=== PATIENT | female | born 1985 | race Caucasian/White ===

== ENCOUNTER 2018-05-11 07:24 | Day surgery (SDC) | payer BC ==
[~2018-05-11] VITALS: Ht 162.6 cm; Wt 55.8 kg
[2018-05-11] VITALS (10 sets, daily range): BP systolic 90–111; BP diastolic 40–80
--- NOTE | 2018-05-11 07:05 | Pre-Procedure Note/Attestation ---
Pre-Procedure Note/Attestation Complete Prior to Procedure Planned Procedure: left Procedure Narrative: knee acl reconstruction, possible menisectomy Indications for Procedure Pre-Operative Diagnosis: left knee acl tear/laxity Attestation I attest that I discussed the nature of the procedure; its benefits; risks and complications; and alternatives (and the risks and benefits of such alternatives ), prior to the procedure, with the patient (or the patient's legal phone representative). I attest that, if there was a reasonable possibility of needing a blood transfusion, the patient (or the patient's legal phone representative) was given the [facility] standardized written summary, pursuant to the Mehdi Felice Blood Safety Act ([place] [facility] and Safety Code # 1645, as amended). I attest that I re-evaluated the patient just prior to the surgery and that there has been no change in the patient's H&P, except as documented below: Roberto Kat MD May 11, 2018 07:05
--- NOTE | 2018-05-11 07:06 | Operative Note - PDOC ---
Operative Note Operative Note Pre-op Diagnosis: left knee acl tear/laxity Procedure: see op report Post-op Diagnosis: same as pre-op plus Operative Findings: consistent w/pre-op dx studies Anesthesia: MAC Specimen: none Complications: none Condition: stable Estimated Blood Loss: none Implant(s) used?: Yes Roberto Kat MD May 11, 2018 07:06
[~2018-05-11 07:24] MED LIST: D5 1/2NS 1,000 ML IV SCH; HYDROmorphone 1mg/ml Carpuject SUBQ PRN; Norco 5mg/325mg tab ORAL PRN; Tylenol #3 tab (300mg/30mg) ORAL PRN; ceFAZolin 1gm in D5W 55ml IVPB ONE; celeBREX 200mg Cap **SURGERY PATIENTS ONLY ORAL ONE; oxyCONTIN 20mg tab ORAL ONE
[2018-05-11] MEDS ORDERED: SPIRONOLACTONE100 MG ORAL (08:11)
[2018-05-11] MEDS ORDERED: celeBREX 200mg Cap **SURGERY PATIENTS ONLY ORAL ONE (08:35)
[2018-05-11] MEDS ORDERED: oxyCONTIN 20mg tab ORAL ONE (08:35)
[2018-05-11] MEDS ORDERED: Lidocaine 1% MPF 10mg/ml 5ml ONE (09:26)
[2018-05-11] MEDS ORDERED: fentaNYL 100 mcg/2 mL IV ONE (09:26)
[2018-05-11] MEDS ORDERED: Midazolam 2mg/2ml Inj ONE (09:26)
[2018-05-11] MEDS ORDERED: Propofol 200mg/20ml IV ONE (09:26)
[2018-05-11] MEDS ORDERED: Ropivacaine 5mg/ml Vial 30ml INJ ONE ×2 (09:30→11:35)
[2018-05-11] MEDS ORDERED: EPINEPHrine 1mg/1ml Amp ONE ×2 (09:30→10:32)
[2018-05-11] MEDS ORDERED: Ketorolac 30mg Inj ONE ×2 (10:32→11:36)
[2018-05-11] MEDS ORDERED: Kenalog-40 1ml Vial ONE (10:32)
[2018-05-11] MEDS ORDERED: Bupivacaine 0.25% Inj 30ml INJ ONE ×2 (10:32→10:33)
[2018-05-11] MEDS ORDERED: Morphine Sulfate PF 0 ML ONE (10:32)
[2018-05-11] MEDS ORDERED: Lidocaine 1% 10mg/ml/Epi 0.005mg/ml 30ml vial INJ ONE (10:33)
[2018-05-11] MEDS ORDERED: LR 1000ml ONE (11:00)
[2018-05-11] MEDS ORDERED: NS Irrig 4000ml IRRIG ONE (11:00)
--- NOTE | 2018-05-11 11:28 | Anethesia Preoperative Eval ---
Anesthesia Pre-op PMH/ROS General Date of Evaluation: May 11, 2018 Anesthesiologist: Fran ASA Score: ASA 2 Mallampati Score Class I : Soft palate, uvula, fauces, pillars visible Class II: Soft palate, uvula, fauces visible Class III: Soft palate, base of uvula visible Class IV: Only hard plate visible Mallampati Classification: Class II Surgeon: North Diagnosis: Left knee ACL tear Surgical Procedure: Left knee arthroscopy with ACL repair Anesthesia History: none Family History: no anesthesia problems Allergies: Coded Allergies: No Known Allergies (Unverified , 05/10/18) Medications: see eMAR Past Medical History Cardiovascular: Denies: HTN, CAD, [place], valve dz, arrhythmia, other Pulmonary: Denies: asthma, COPD, LUAN, other Gastrointestinal/Genitourinary: Denies: GERD, CRI, ESRD, other Neurologic/Psychiatric: Reports: other - migraines; Denies: dementia, CVA, depression/anxiety, TIA Endocrine: Denies: DM, hypothyroidism, steroids, other HEENT: Denies: cataract (L), cataract (R), glaucoma, [place] (L), [place] (R), other Hematology/Immune: Denies: anemia, DVT, bleeding disorder, other Musculoskeletal/Integumentary: Denies: OA, RA, DJD, DDD, edema, other PSxH Narrative: Left ACL repair 14 years ago Anesthesia Pre-op Phys. Exam Physician Exam Last Vital Signs Date Time Temp Pulse Resp B/P (MAP) Pulse Ox O2 Delivery O2 Flow Rate FiO2 05/11/18 08:15 98.0 72 20 111/71 (84) 100 98.0 05/11/18 08:12 Room Air Constitutional: NAD Cardiovascular: RRR Respiratory: CTA Airway Exam Mallampati Score: Class I MO: full ROM: full Teeth: intact Anesthesia Pre-op A/P Labs see chart Urine Test Test 05/11/18 07:40 Urine HCG, Qualitative Negative (NEGATIVE) Studies Pre-op Studies: EKG - sr Risk Assessment & Plan Assessment: ASA II Plan: GA with left adductor nerve block Status Change Before Surgery: No Pre-Antibiotics Drug: Ancef 1g Given Within 1 Hr of Incision: Yes Time Given: 11:25 Vilma Rao MD May 11, 2018 11:28
--- NOTE | 2018-05-11 11:29 | Immediate Post-Op Evaluation ---
Immediate Post-Op Evalulation Immediate Post-Op Evalulation Procedure: Left knee arthroscopy with ACL repair Date of Evaluation: May 11, 2018 Time of Evaluation: 12:56 IV Fluids: 800 Blood Products: 0 Estimated Blood Loss: min Urinary Output: 0 Blood Pressure Systolic: 90 Blood Pressure Diastolic: 40 Pulse Rate: 54 Respiratory Rate: 16 O2 Sat by Pulse Oximetry: 100 Temperature (Fahrenheit): 98 Pain Score (1-10): 0 Nausea: No Vomiting: No Complications 0 Patient Status: awake, reacts, patent, none Hydration Status: adequate Drug: Ancef 1g Given Within 1 Hr of Incision: Yes Time Given: 11:25 Vilma Rao MD May 11, 2018 11:29
--- NOTE | 2018-05-11 11:29 | 48 Hour Post Anesthesia Eval ---
Post Anesthesia Evaluation Procedure: Left knee arthroscopy with ACL repair Date of Evaluation: May 11, 2018 Time of Evaluation: 14:25 Blood Pressure Systolic: 107 0: 80 Pulse Rate: 84 Respiratory Rate: 18 Temperature (Fahrenheit): 98.1 O2 Sat by Pulse Oximetry: 97 Airway: patent Nausea: No Vomiting: No Pain Intensity: 0 Hydration Status: adequate Cardiopulmonary Status: at baseline Mental Status/LOC: patient returned to baseline Post-Anesthesia Complications: 0 Follow-up care needed: ready to discharge Vilma Rao MD May 11, 2018 11:29
[2018-05-11] MEDS ORDERED: Dexamethasone 4mg/ml vial ONE (11:36)
[2018-05-11] MEDS ORDERED: Metoclopramide 10mg/2ml Inj ONE (12:07)
--- NOTE | 2018-05-12 09:45 | Operative Note - Dictated ---
DATE OF OPERATION: 05/11/2018 PREOPERATIVE DIAGNOSIS: Left knee ACL laxity secondary to ACL tear. POSTOPERATIVE DIAGNOSES: 1. Left knee ACL incompetency secondary to laxity. 2. Mild grade 2 chondral damage of medial femoral condyle. PROCEDURE: 1. Left knee arthroscopic revision ACL reconstruction with tibialis anterior allograft. 2. Femoral notch decompression/osteoplasty. 3. Synovectomy of medial, lateral, patellofemoral compartment. SURGEON: Roberto Kat M.D. ANESTHESIA: Femoral with general. INDICATION FOR PROCEDURE: The patient is a pleasant 33-year-old female who approximately 20 years ago underwent ACL reconstruction. She reports instability of left knee which is relatively recent. Physical examination shows significant laxity on anterior drawer testing. MRI did show a real tear of the ACL where the femoral tunnel was placed and it was felt that she probably had some posterolateral instability. Therefore, she elected to undergo revision ACL reconstruction. The risks, limitations, expectations, and complications of procedure were discussed in detail including continued pain, need for future surgery, risk of anesthesia, medical complications, DVT, PE, and mortality risks. All questions were addressed. DESCRIPTION OF PROCEDURE: After informed consent was obtained, the patient was brought to the operating room. We placed the patient under general anesthesia. Tourniquet was applied to left proximal thigh. Left leg was prepped and draped in sterile manner. Time-out was performed. Examination under anesthesia showed positive Sofia's test and positive reverse pivot-shift test. At this point, inferolateral stab incision was then made. Trocar was introduced into the knee joint. There was some hypertrophic synovial tissue in the retropatellar space area and this was cleaned up. There was a medial plica which was along the medial condyle of medial compartment which was debrided. Once this was done, medial compartment was entered. The meniscus was probed and noted to be intact. There was some grade 1 and grade 2 chondral damage of the tibial plateau. Intercondylar notch was entered and there was significant disruption of the ACL although there was still some remnant - a femoral component. The lateral compartment was entered and was free of meniscal or chondral damage. At this point, the synovectomy was completed of the lateral compartment to better visualize the intercondylar notch. At this point, the remnants of the previous ACL graft were debrided given it was grossly laxed. Once the previous ACL graft was debrided, the femoral tunnel was evaluated. There was some stenosis of the tunnel and therefore, a notchplasty was performed to make sure that there was no impingement of the notch on the graft. Once the notchplasty was completed, a femoral guide was placed and the femoral and tibial tunnels were prepared. Once that was done, using [employer] ToggleLoc Suture Relay System, the tibialis anterior allograft was fashioned on the back table and tensioned, was then passed through. It was secured along the tibia with a 10 x 30 tibial interference screw. Once that was done, the camera was repositioned in the knee joint. There was no prominence of the screw that was visible. Using manual palpation and visual inspection, there was no prominence along the tibial plateau. At this point, the instruments were removed. Portal sites were closed with 3-0 Monocryl sutures. Steri-Strips and a sterile dressing were applied. ESTIMATED BLOOD LOSS: None. COMPLICATIONS: None. SPECIMENS: None. IMPLANTS: Include tibialis anterior allograft, [employer] ToggleLoc Suture Relay, and a 10 x 30 interference screw. Roberto Kat M.D. DR: John JOB#: [id number] CC: ZAIRA
== END 2018-05-11 14:35 | disposition home or self-care (01) ==
LOC: SUR 07:24
DX: S83.512A Sprain of anterior cruciate ligament of left knee, initial encounter (principal); X58.XXXA Exposure to other specified factors, initial encounter; Y93.9 Activity, unspecified; Y92.9 Unspecified place or not applicable
CPT/HCPCS: 29876; 29888; 81025; C1713; J0171; J0690; J1100; J1885; J2250; J2405; J2704; J2765; J2795; J3010; J3490; J7120; 94003; 94150